=== PATIENT | male | born 1995 | race Caucasian/White ===

== ENCOUNTER 2020-06-04 18:13 | Emergency (ER) | payer BC, SELFPAY ==
[~2020-06-04] VITALS: Ht 177.8 cm; Wt 84.6 kg
[2020-06-04] MEDS ORDERED: LIDOCAINE 1% MDV 20ML VIAL IM ONE (19:00)
--- NOTE | 2020-06-04 19:29 | REPVR ---
PROCEDURE INFORMATION: Exam: XR Right Hand Exam date and time: 06/04/2020 6:42 PM Age: 24 years old Clinical indication: Pain; Hand; Right; Additional info: Deformity TECHNIQUE: Imaging protocol: XR Right hand. Views: 3 or more views. COMPARISON: No relevant prior studies available. FINDINGS: Bones/joints: There is complete dorsal dislocation at the 2nd metacarpophalangeal joint, with mild ulnar subluxation. No other malalignment. Normal bone mineralization. The 2nd metacarpal articulates with the distal radial aspect of the capitate, where there may be mild indentation in the articular surface, best seen on the oblique view. However, there is also mild bony hypertrophy in the adjacent 2nd metacarpal base which may be a form of carpal boss. The appearance of mild impaction may be a chronic finding rather than an acute small intra-articular fracture of the distal radial aspect of the capitate. Soft tissues: Mild edema in the proximal index finger. IMPRESSION: 1. Complete dorsal dislocation at the 2nd MCP joint with mild ulnar subluxation. 2. Mild indentation in the distal radial aspect of the capitate where it abuts a prominent 2nd metacarpal base. This may be a form of carpal boss, and the mild impaction may be a chronic finding rather than an acute small intra-articular fracture of of the distal capitate. Suggest correlation for focal tenderness. 3. Mild edema in the proximal index finger. Electronically signed by: Jennifer Conteh On 06/04/2020 19:28:59 PM
[2020-06-04] MEDS ORDERED: PERCOCET 5MG/325MG TAB PO ONE (19:45)
[2020-06-04] MEDS ORDERED: MORPHINE 4 MG/ML 1ML VIAL/SYRINGE (J2270) IV ONE ×2 (20:30→22:45)
[2020-06-04 23:52] VITALS: BP 142/84
[2020-06-05] MEDS ORDERED: ONDANSETRON 4MG/2ML VIAL IV ONE
[2020-06-05] MEDS ORDERED: MORPHINE 4 MG/ML 1ML VIAL/SYRINGE (J2270) IV ONE
== END 2020-06-05 00:05 | disposition short-term general hospital (02) ==
LOC: M ED 18:13
DX: S63.260A Dislocation of metacarpophalangeal joint of right index finger, initial encounter (principal); W23.1XXA Caught, crushed, jammed, or pinched between stationary objects, initial encounter; Y99.0 Civilian activity done for income or pay
CPT/HCPCS: 26770; 73130; 96374; 96375; 96376; 99285; J2270; J2405